=== PATIENT | male | born 1975 | race Caucasian/White ===

== ENCOUNTER 2016-11-20 01:13 | Observation (INO) | payer MEDICARE, OTHER ==
[~2016-11-20] VITALS: Ht 180.3 cm; Wt 61.0 kg
[2016-11-20] MEDS ORDERED: ASPIRIN EC81 MG PO (02:50)
[2016-11-20] MEDS ORDERED: PLAVIX 75 MG TA75 MG PO (02:51)
[2016-11-20] MEDS ORDERED: BENTYL 20MG TAB20 MG PO (02:51)
[2016-11-20] MEDS ORDERED: KEPPRA 500 MG500 MG PO (02:52)
[2016-11-20] MEDS ORDERED: MIDODRINE HCL5 MG PO (02:52)
[2016-11-20] MEDS ORDERED: AMOXICILLIN500 MG PO (02:53)
[2016-11-20] MEDS ORDERED: OMEPRAZOLE20 MG PO (02:53)
[2016-11-20] MEDS ORDERED: LOPERAMIDE2 M1 PO (02:54)
[2016-11-20] MEDS ORDERED: LIPITOR TAB 2020 MG PO (02:56)
[2016-11-20] MEDS ORDERED: TOPROL XL50 MG PO (02:56)
[2016-11-20] MEDS ORDERED: DITROPAN 5 MG TA5 MG PO (02:57)
[2016-11-20] MEDS ORDERED: MAGNESIUM OXID400 MG PO (20:14)
[2016-11-20] MEDS ORDERED: THERAGRAN TAB1 EA PO (20:14)
== END 2016-11-20 20:05 | disposition home or self-care (01) ==
LOC: M/S 02:24
PROVIDERS: ADMIT Internal Medicine
DX: R47.1 Dysarthria and anarthria (principal); R07.89 Other chest pain; I47.2 Ventricular tachycardia; E83.42 Hypomagnesemia; I10 Essential (primary) hypertension; E78.5 Hyperlipidemia, unspecified; K04.7 Periapical abscess without sinus; G40.909 Epilepsy, unspecified, not intractable, without status epilepticus; G89.29 Other chronic pain; F41.9 Anxiety disorder, unspecified; F10.20 Alcohol dependence, uncomplicated; F17.220 Nicotine dependence, chewing tobacco, uncomplicated; Z86.79 Personal history of other diseases of the circulatory system; Z87.19 Personal history of other diseases of the digestive system; Z79.02 Long term (current) use of antithrombotics/antiplatelets; Z79.899 Other long term (current) drug therapy; Z79.82 Long term (current) use of aspirin; Z90.49 Acquired absence of other specified parts of digestive tract; Z88.1 Allergy status to other antibiotic agents; Z88.6 Allergy status to analgesic agent
CPT/HCPCS: ECHO; 36415; 70553; 80061; 82550; 82553; 83036; 83735; 84484; 92610; 93005; 93306; 96374; 96375; 96376; A9577; G0378; G0379; J2270; J3411; J3475; J7030

== ENCOUNTER → 2022-02-15 | Outpatient (CLI) | payer MEDICARE, OTHER ==
[~2022-02-15] MED LIST: AMOXICILLIN500 MG PO; ASPIRIN EC81 MG PO; BENTYL 20MG TAB20 MG PO; DITROPAN 5 MG TA5 MG PO; KEPPRA 500 MG500 MG PO; LIPITOR TAB 2020 MG PO; LOPERAMIDE2 M1 PO; MAGNESIUM OXID400 MG PO; MIDODRINE HCL5 MG PO; OMEPRAZOLE20 MG PO; PLAVIX 75 MG TA75 MG PO; THERAGRAN TAB1 EA PO; TOPROL XL50 MG PO; [UNRECOGNIZED DRUG - REMARK]
[2022-02-15 10:01] LABS: HEMOGLOBIN 8.6 gm/dl (14.0-17.5); RED BLOOD COUNT 4.68 M/UL (4.20-5.50); WHITE BLOOD COUNT 3.4 K/UL (4.5-11.0)
== END ==
LOC: US 02-06 09:30
PROVIDERS: Internal Medicine Gastroenterology
DX: K70.30 Alcoholic cirrhosis of liver without ascites (principal); R10.13 Epigastric pain; R94.5 Abnormal results of liver function studies; R79.89 Other specified abnormal findings of blood chemistry
CPT/HCPCS: 36415; 76705; 80076; 82150; 83690; 85027; 85610

== ENCOUNTER → 2022-02-27 | Day surgery (SDC) | payer MEDICARE ==
[~2022-02-27] MED LIST changes: +ALL DAY ALLERGY10 M2 PO; +CITALOPRAM HBR10 MG PO; +FLOMAX 0.4 MG0.4 MG PO; +FOLIC ACID 1 MG1 MG PO; +HYDROCODON-ACE1 EAC2 PO; +KEPPRA500 MG PO; +LOPERAMIDE2 MG PO; +NEURONTIN300 MG PO; +OMEPRAZOLE40 MG PO; +SPIRONOLACTONE25 MG PO; +TESTOSTERON100 MG/ML IM; +VIAGRA100 MG PO; +VITAMIN D21250 MCG PO; +WELCHOL3.75 GM PO
== END | disposition home or self-care (01) ==
LOC: OR 08:35
PROVIDERS: Internal Medicine Gastroenterology
PROC: 0DB78ZX Excision of Stomach, Pylorus, Via Natural or Artificial Opening Endoscopic, Diagnostic (ICD-10-PCS; 2022-02-27)
PROC: 0DB68ZX Excision of Stomach, Via Natural or Artificial Opening Endoscopic, Diagnostic (ICD-10-PCS; principal; 2022-02-27 10:30)
DX: K70.30 Alcoholic cirrhosis of liver without ascites (principal); I85.10 Secondary esophageal varices without bleeding; K76.6 Portal hypertension; K31.89 Other diseases of stomach and duodenum; K29.50 Unspecified chronic gastritis without bleeding; K21.9 Gastro-esophageal reflux disease without esophagitis; I25.2 Old myocardial infarction; I10 Essential (primary) hypertension; E78.5 Hyperlipidemia, unspecified; G40.909 Epilepsy, unspecified, not intractable, without status epilepticus; F17.290 Nicotine dependence, other tobacco product, uncomplicated; F10.10 Alcohol abuse, uncomplicated; E66.3 Overweight; Z68.25 Body mass index [BMI] 25.0-25.9, adult; Z88.1 Allergy status to other antibiotic agents; Z88.5 Allergy status to narcotic agent; Z88.8 Allergy status to other drugs, medicaments and biological substances; Z79.891 Long term (current) use of opiate analgesic; Z79.890 Hormone replacement therapy; Z79.2 Long term (current) use of antibiotics; Z79.899 Other long term (current) drug therapy; Z86.711 Personal history of pulmonary embolism
CPT/HCPCS: J2704; J7040